=== PATIENT | male | born 1995 | race Two or more races ===

== ENCOUNTER 2017-04-05 13:32 | Emergency (ER) | payer OTHER ==
--- NOTE | 2017-04-05 15:59 | EDM.PDOC ---
ED HPI GENERAL MEDICAL PROBLEM - General Chief Complaint: ENT Problem Stated Complaint: PT SAID HIS NOSE IS ALWAYS BLEEDING Time Seen by Provider: 04/05/17 15:12 Source of Information: Reports: Patient History Limitations: Reports: No Limitations - History of Present Illness INITIAL COMMENTS - FREE TEXT/NARRATIVE: HISTORY AND PHYSICAL: History of present illness: Patient is a 22-year-old male who presents to the emergency room with complaints of nosebleeds. He states he has had intermittent nosebleeds for the past 2-3 years. Since moving to [place] from [place] he has noticed his frequency increasing to approximately one per month. He states that these lasted approximately 15 minutes at a time after applying pressure and tilting his head back. He denies any recent trauma or injury to his face. No current bleeding noted. Denies any drug use including intranasal cocaine. Reports mild seasonal allergies. Does not tried any [id number] products. Has not seen a previous healthcare provider for this issue. Review of systems: As per history of present illness and below otherwise all systems reviewed and negative. Past medical history: As per history of present illness and as reviewed below otherwise noncontributory. Surgical history: As per history of present illness and as reviewed below otherwise noncontributory. Social history: No reported history of drug or alcohol abuse. Family history: As per history of present illness and as reviewed below otherwise noncontributory. Physical exam: HEENT: Atraumatic, normocephalic, pupils reactive, negative for conjunctival pallor or scleral icterus, mucous membranes moist, throat clear, neck supple, nontender, trachea midline. The nasal mucosa appears irritated, no polyps noted. Lungs: Clear to auscultation, breath sounds equal bilaterally, chest nontender. Heart: S1S2, regular, negative for clicks, rubs, or JVD. Abdomen: Soft, nondistended, nontender. Negative for masses or hepatosplenomegaly. Negative for costovertebral tenderness. Pelvis: Stable nontender. Genitourinary: Deferred. Rectal: Deferred. Extremities: Atraumatic, negative for cords or calf pain. Neurovascular unremarkable. Neuro: Awake, alert, oriented. Cranial nerves II through XII unremarkable. Cerebellum unremarkable. Motor and sensory unremarkable throughout. Exam nonfocal. Diagnostics: [] Therapeutics: [] Impression: Epistaxis Plan: 1. Please get Flonase [id number] and use this as directed. I would follow- up with your primary care provider to be established and ensure that these subside. You may also follow-up with ear nose and throat (ENT). Please get a humidifier to help keep your nasal mucousa moist. 2. Return to the ED as needed as discussed Definitive disposition and diagnosis as appropriate pending reevaluation and review of above. Duration: Chronic - Related Data Allergies Allergy/AdvReac Type Severity Reaction Status Date / Time No Known Allergies Allergy Verified 04/05/17 14:22 Home Meds: Home Meds . [No Known Home Meds] 04/05/17 [History] Past Medical History - Past Health History Medical/Surgical History: Denies Medical/Surgical History Social & Family History - Tobacco Use Smoking Status *Q: Never Smoker Second Hand Smoke Exposure: No - Caffeine Use Caffeine Use: Reports: None - Recreational Drug Use Recreational Drug Use: No ED ROS ENT - Review of Systems Review Of Systems: ROS reveals no pertinent complaints other than HPI. ED EXAM, ENT - Physical Exam Exam: See Below (See dictation) Course - Vital Signs Last Recorded V/S: Last Vital Signs Temp 36.2 C 04/05/17 14:19 Pulse 78 04/05/17 15:33 Resp 18 04/05/17 15:33 BP 135/60 04/05/17 15:33 Pulse Ox 98 04/05/17 15:33 Departure - Departure Time of Disposition: 15:57 Disposition: Home, Self-Care 01 Clinical Impression: Epistaxis - Discharge Information Referrals: PCP,None [Primary Care Provider] - Additional Instructions: My general discharge The following information is given to patients seen in the emergency department who are being discharged to home. This information is to outline your options for follow-up care. We provide all patients seen in our emergency department with a follow-up referral. The need for follow-up, as well as the timing and circumstances, are variable depending upon the specifics of your emergency department visit. If you don't have a primary care physician on staff, we will provide you with a referral. We always advise you to contact your personal physician following an emergency department visit to inform them of the circumstance of the visit and for follow-up with them and/or the need for any referrals to a consulting specialist. The emergency department will also refer you to a specialist when appropriate. This referral assures that you have the opportunity for follow-up care with a specialist. All of these measure are taken in an effort to provide you with optimal care, which includes your follow-up. Under all circumstances we always encourage you to contact your private physician who remains a resource for coordinating your care. When calling for follow-up care, please make the office aware that this follow-up is from your recent emergency room visit. If for any reason you are refused follow-up, please contact the [facility] Emergency Department at and asked to speak to the emergency department charge nurse. [facility] [address] [place] [id number] 1. Please get Flonase [id number] and use this as directed. I would follow- up with your primary care provider to be established and ensure that these subside. You may also follow-up with ear nose and throat (ENT). Please get a humidifier to help keep your nasal mucousa moist. 2. Return to the ED as needed as discussed
== END 2017-04-05 16:12 | disposition home or self-care (01) ==
LOC: MW.ED 13:32
DX: R04.0 Epistaxis (principal)
CPT/HCPCS: 99282; 99283